=== PATIENT | male | born 1980 | race Caucasian/White ===

== ENCOUNTER 2018-05-13 20:37 | Emergency (ER) | payer OTHER, SELFPAY ==
[2018-05-13 20:39] VITALS: BP 124/85; PULSE 100; RESP 20; TEMP 36.4; O2SAT 96; BMI 33.7
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
[2018-05-13] MEDS: morphine 8 MG/ML Syringe IM (20:45)
[2018-05-13] MEDS: Ondansetron 4 MG/2 ML Vial IV (20:45)
--- NOTE | 2018-05-13 20:50 | ED.RN ---
MORPHINE 8MG IV AND ZOFRAN 4MG IV GIVEN AT 2044
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
== END 2018-05-13 21:10 | disposition short-term general hospital (02) ==
PROVIDERS: Emergency Provider Emergency Medicine
DX: S72.352B Displaced comminuted fracture of shaft of left femur, initial encounter for open fracture type I or II (principal); S92.311B Displaced fracture of first metatarsal bone, right foot, initial encounter for open fracture; S92.321A Displaced fracture of second metatarsal bone, right foot, initial encounter for closed fracture; S92.331A Displaced fracture of third metatarsal bone, right foot, initial encounter for closed fracture; V43.52XA Car driver injured in collision with other type car in traffic accident, initial encounter; Y93.I9 Activity, other involving external motion; Y92.410 Unspecified street and highway as the place of occurrence of the external cause; Y99.8 Other external cause status
CPT/HCPCS: 71045; 72170; 73552; 73620; 73630; 96372; 96374; 99285; J7030; J2405